=== PATIENT | male | born 1955 | race Caucasian/White ===

== ENCOUNTER 2023-02-06 12:57 | Emergency (ER) | payer MEDICARE ==
[~2023-02-06] VITALS: Ht 185.4 cm; Wt 106.6 kg
[2023-02-06 13:15] VITALS: BP 155/95
[2023-02-06] MEDS ORDERED: RANO500T PO (15:02)
[2023-02-06] MEDS ORDERED: ATOR40TA PO (15:02)
[2023-02-06] MEDS ORDERED: METO25ER PO (15:02)
[2023-02-06] MEDS ORDERED: ACYC800 PO (15:02)
== END 2023-02-06 15:10 | disposition home or self-care (01) ==
LOC: ER 12:57
DX: B02.9 Zoster without complications (principal)
CPT/HCPCS: 96372; 99283; A9270; J1885